=== PATIENT | female | born 1995 | race Caucasian/White ===

== ENCOUNTER 2018-06-06 00:03 | Emergency (ER) | payer OTHER ==
[~2018-06-06] VITALS: Ht 157.5 cm; Wt 81.2 kg
[2018-06-06 00:11] VITALS: Ht 157.5 cm; Wt 81.2 kg
[2018-06-06 01:41] VITALS: BP 130/84
== END 2018-06-06 01:41 | disposition home or self-care (01) ==
LOC: ED 00:03
DX: S63.91XA Sprain of unspecified part of right wrist and hand, initial encounter (principal); S61.202A Unspecified open wound of right middle finger without damage to nail, initial encounter; S61.204A Unspecified open wound of right ring finger without damage to nail, initial encounter; M53.3 Sacrococcygeal disorders, not elsewhere classified; J45.909 Unspecified asthma, uncomplicated; Z88.0 Allergy status to penicillin; W18.39XA Other fall on same level, initial encounter; Y93.9 Activity, unspecified; Y92.89 Other specified places as the place of occurrence of the external cause; Y99.8 Other external cause status
CPT/HCPCS: A4570; J1885